=== PATIENT | female | born 1960 | race Caucasian/White ===

== ENCOUNTER 2018-07-29 13:56 | Outpatient (CLI) | payer OTHER | END 2018-07-29 13:57 | disposition home or self-care (01) | LOC: BICMAMMO 13:56 | PROVIDERS: ATTEND Obstetrics & Gynecology | DX: Z12.31 Encounter for screening mammogram for malignant neoplasm of breast (principal); Z80.3 Family history of malignant neoplasm of breast | CPT/HCPCS: 77063; 77067 ==

== ENCOUNTER 2019-08-01 14:31 | Outpatient (CLI) | payer OTHER ==
--- NOTE | 2019-08-01 15:57 | MMO ---
Bilateral MAMMO Bilat Screen [facility]. CLINICAL HISTORY: Patient is 59 years old and is seen for screening. The patient has no family history of breast cancer. The patient has no personal history of cancer. VIEWS: The views performed were: bilateral craniocaudal with tomosynthesis and bilateral mediolateral oblique with tomosynthesis. FILMS COMPARED: The present examination has been compared to prior imaging studies performed at 07/29/2018, and at [facility] on 07/29/2017. This study has been interpreted with the assistance of computer-aided detection. MAMMOGRAM FINDINGS: There are scattered fibroglandular densities. There are no suspicious masses, suspicious calcifications, or new areas of architectural distortion. IMPRESSION: THERE IS NO MAMMOGRAPHIC EVIDENCE OF MALIGNANCY. A ROUTINE FOLLOW-UP MAMMOGRAM IN 1 YEAR IS RECOMMENDED. THE RESULTS OF THIS EXAM WERE SENT TO THE PATIENT. ACR BI-RADS Category 1 - Negative MAMMOGRAPHY NOTE: 1. A negative mammogram report should not delay a biopsy if a dominant of clinically suspicious mass is present. 2. Approximately 10% to 15% of breast cancers are not detected by mammography. 3. Adenosis and dense breasts may obscure an underlying neoplasm. Reported by: ALF WALLACE MD Electonically Signed: [id number]
== END 2019-08-01 14:32 | disposition home or self-care (01) ==
LOC: BICMAMMO 14:31
PROVIDERS: ATTEND Family Medicine
DX: Z12.31 Encounter for screening mammogram for malignant neoplasm of breast (principal)
CPT/HCPCS: 77063; 77067

== ENCOUNTER 2020-09-05 10:00 | Outpatient (CLI) | payer BC ==
--- NOTE | 2020-09-05 11:11 | MMO ---
Bilateral MAMMO Bilat Screen [facility]. CLINICAL HISTORY: Patient is 60 years old and is seen for screening. The patient has no family history of breast cancer. The patient has no personal history of cancer. VIEWS: The views performed were: bilateral craniocaudal with tomosynthesis and bilateral mediolateral oblique with tomosynthesis. FILMS COMPARED: The present examination has been compared to prior imaging studies performed at 07/29/2018 and 08/01/2019, and at [facility] on 07/29/2017. This study has been interpreted with the assistance of computer-aided detection. MAMMOGRAM FINDINGS: There are scattered fibroglandular densities. There are no suspicious masses, suspicious calcifications, or new areas of architectural distortion. IMPRESSION: THERE IS NO MAMMOGRAPHIC EVIDENCE OF MALIGNANCY. A ROUTINE FOLLOW-UP MAMMOGRAM IN 1 YEAR IS RECOMMENDED. THE RESULTS OF THIS EXAM WERE SENT TO THE PATIENT. ACR BI-RADS Category 1 - Negative MAMMOGRAPHY NOTE: 1. A negative mammogram report should not delay a biopsy if a dominant of clinically suspicious mass is present. 2. Approximately 10% to 15% of breast cancers are not detected by mammography. 3. Adenosis and dense breasts may obscure an underlying neoplasm. Reported by: MANOLO NOLAN MD Electonically Signed: [id number]
== END 2020-09-05 10:01 | disposition home or self-care (01) ==
LOC: BICMAMMO 10:00
PROVIDERS: ATTEND Family Medicine
DX: Z12.31 Encounter for screening mammogram for malignant neoplasm of breast (principal)
CPT/HCPCS: 77063; 77067

== ENCOUNTER 2023-03-09 08:01 | Inpatient (IN) | payer MEDICARE ==
[2023-03-09] MEDS ORDERED: Iopamidol-370 76% 500 ML MDV (1 ML CHARGE) ONE (08:36)
[2023-03-09 08:47] LABS: #Monocytes 0.1 thou/uL (0.11-0.59); #Neutrophils 8.8 thou/uL (1.40-6.50); %Basophils 0.1 % (0.0-1.0); %Eosinophils 0.2 % (0.0-10.0); %Monocytes 1.3 % (0.0-10.0); %Neutrophils 79.9 % (42.0-75.0); Hematocrit 31.4 % (36.0-47.0); Hemoglobin 9.5 g/dL (12.0-16.0); Mean Corpuscular HGB CONC 30.3 g/dL (32.0-36.0); Mean Corpuscular Hemoglobin 22.1 pg (27.0-31.0); Mean Corpuscular Volume 73.2 fl (78.0-98.0); Mean Platelet Volume 9.3 fL (7.4-10.4); Platelet Count 757 10x3/uL (130-400); RBC Distribution Width 22.3 % (11.5-14.5); Red Blood Cell (RBC) Count 4.29 mill/uL (4.20-5.40)
[2023-03-09 09:05] LABS: INR-International Normal Ratio 1.1; PTT 27.3 sec (22.9-36.1); Prothrombin Time 14.7 sec (12.0-14.7)
[2023-03-09 09:11] LABS: ALT (SGPT) 50 U/L (8-55); AST (SGOT) 88 U/L (5-34); Albumin 3.3 g/dL (3.4-4.8); Alkaline Phosphatase 220 U/L (40-110); Anion Gap 14 mmol/L (10-20); BUN (Urea Nitrogen) 13 mg/dL (9.8-20.1); Bilirubin, Total 0.7 mg/dL (0.2-1.2); Calc. Creatinine Clearance 0 mL/min (70-130); Calcium 9.5 mg/dL (7.8-10.44); Carbon Dioxide 24 mmol/L (23-31); Chloride 101 mmol/L (98-107); Estimated GFR 96; Globulin 3.9 g/dL (2.4-3.5); Glucose 91 mg/dL (80-115); Lipase 25 U/L (8-78); Protein, Total 7.2 g/dL (5.8-8.1); Sodium 135 mmol/L (136-145)
[2023-03-09 09:38] LABS: CellaVision Operator ID LAB.GE; Hypochromia SLIGHT = 6-15 cells HPF (0-5); Large Platelets 1.7 % (0-5); Microcytosis SLIGHT = 6-15 cells HPF (0-5); Platelet Adequacy Comment Platelets Normal; Smudge Cells 6.1 %
[2023-03-09] MEDS ORDERED: Bisacodyl 5 MG TAB PO PRN (10:14)
[2023-03-09] MEDS ORDERED: Bisacodyl 10 MG SUPP PR PRN (10:14)
[2023-03-09] MEDS ORDERED: Senokot S 8.6-50 MG TAB PO PRN (10:14)
[2023-03-09 10:20] LABS: Bacteria/HPF None Seen HPF (None Seen); Bilirubin Negative (Negative); Blood, Urine Negative (Negative); CAUTI Indications for Culture Immunosuppressed; Clarity Clear (Clear); Glucose, Urine (Dipstick) Normal (Negative); Ketone, Urine Negative (Negative); Leukocyte Negative Leu/uL (Negative); Nitrite Negative (Negative); Protein, Urine (Dipstick) Negative (Neg-Trace); RBC/HPF 0-3 HPF (0-3); Specific Gravity, Urine 1.025 (1.002-1.036); Squamous Epithelial 0-3 HPF (0-3); Urobilinogen Normal mg/dL (Less than 2); WBC/HPF 0-3 HPF (0-3)
[2023-03-09 10:22] LABS: Urine Culture Reflex Yes Yes
[2023-03-09] MEDS ORDERED: Piperacillin/Tazobactam 4.5 GM VIAL ONE (10:24)
[2023-03-09] MEDS ORDERED: Piperacillin/Tazobactam 3.375 GM in Sodium Chloride 0.9% 100 ML IVPB SCH (12:00)
[2023-03-09 12:27] LABS: Hematocrit 27.1 % (36.0-47.0); Hemoglobin 8.2 g/dL (12.0-16.0); Mean Corpuscular HGB CONC 30.3 g/dL (32.0-36.0); Mean Corpuscular Hemoglobin 22.2 pg (27.0-31.0); Mean Corpuscular Volume 73.4 fl (78.0-98.0); Mean Platelet Volume 9.5 fL (7.4-10.4); RBC Distribution Width 22.1 % (11.5-14.5); Red Blood Cell (RBC) Count 3.69 mill/uL (4.20-5.40)
[2023-03-09 12:34] LABS: Platelet Count 631 10x3/uL (130-400)
[2023-03-09 15:09] VITALS: BMI 29.8
[2023-03-09] MEDS ORDERED: Iron, Sodium Ferric Gluconate 125 MG in Sodium Chloride 0.9% 100 ML IVPB SCH (17:00)
[2023-03-09] MEDS: Sodium Chloride 0.9% 1,000 ML IV SCH ×2 (17:08→23:48)
[2023-03-09] MEDS: Piperacillin/Tazobactam 3.375 GM in Sodium Chloride 0.9% 100 ML IVPB SCH ×2 (17:16→23:27)
[2023-03-09] MEDS: Acetaminophen 325 MG TAB PO PRN (17:17)
[2023-03-09] MEDS ORDERED: Lorazepam 0.5 MG TAB PO SCH (21:00)
[2023-03-10 07:42] LABS: Hemoglobin A1c 5.6 % (4.0-6.0)
[2023-03-10 07:44] LABS: #Eosinphils 0.1 thou/uL (0.0-0.7); #Monocytes 0.1 thou/uL (0.11-0.59); %Basophils 0.3 % (0.0-1.0); %Eosinophils 1.1 % (0.0-10.0); %Lymphocytes 15.5 % (21.0-51.0); %Monocytes 0.9 % (0.0-10.0); %Neutrophils 81.5 % (42.0-75.0); Hematocrit 26.1 % (36.0-47.0); Hemoglobin 7.9 g/dL (12.0-16.0); Mean Corpuscular HGB CONC 30.3 g/dL (32.0-36.0); Mean Corpuscular Hemoglobin 21.9 pg (27.0-31.0); Mean Corpuscular Volume 72.5 fl (78.0-98.0); Mean Platelet Volume 9.5 fL (7.4-10.4); Platelet Count 624 10x3/uL (130-400); White Blood Cell (WBC) Count 9.9 10x3/uL (4.8-10.8)
[2023-03-10 07:56] LABS: ALT (SGPT) 38 U/L (8-55); AST (SGOT) 57 U/L (5-34); Albumin 2.9 g/dL (3.4-4.8); Alkaline Phosphatase 229 U/L (40-110); Anion Gap 12 mmol/L (10-20); BUN (Urea Nitrogen) 9 mg/dL (9.8-20.1); Bilirubin, Total 0.5 mg/dL (0.2-1.2); Calc. Creatinine Clearance 99 mL/min (70-130); Calcium 8.7 mg/dL (7.8-10.44); Carbon Dioxide 23 mmol/L (23-31); Chloride 105 mmol/L (98-107); Estimated GFR 98; Globulin 3.4 g/dL (2.4-3.5); Glucose 102 mg/dL (80-115); Iron 122 ug/dL (50-170); Iron Binding Capacity, Total 154 mcg/dL (265-497); Potassium 3.9 mmol/L (3.5-5.1); Protein, Total 6.3 g/dL (5.8-8.1); Sodium 136 mmol/L (136-145)
[2023-03-10] MEDS ORDERED: ALPRAZolam 0.5 MG TAB PO PRN (08:24)
[2023-03-10] MEDS: Estradiol 1 MG TAB PO SCH (10:11)
[2023-03-10] MEDS: Piperacillin/Tazobactam 3.375 GM in Sodium Chloride 0.9% 100 ML IVPB SCH ×2 (10:12→17:00)
[2023-03-10] MEDS: Floranex 1 GM Packet PO SCH (10:12)
[2023-03-10 12:23] LABS: #Basophils 0.1 thou/uL (0.0-0.2); #Eosinphils 0.3 thou/uL (0.0-0.7); #Monocytes 0.2 thou/uL (0.11-0.59); #Neutrophils 7.2 thou/uL (1.40-6.50); %Basophils 0.5 % (0.0-1.0); %Lymphocytes 23.8 % (21.0-51.0); %Monocytes 1.5 % (0.0-10.0); %Neutrophils 70.8 % (42.0-75.0); Hematocrit 27.9 % (36.0-47.0); Hemoglobin 8.2 g/dL (12.0-16.0); Mean Corpuscular HGB CONC 29.4 g/dL (32.0-36.0); Mean Corpuscular Hemoglobin 22.2 pg (27.0-31.0); Mean Platelet Volume 9.2 fL (7.4-10.4); Platelet Count 589 10x3/uL (130-400); RBC Distribution Width 22.3 % (11.5-14.5); Red Blood Cell (RBC) Count 3.69 mill/uL (4.20-5.40); White Blood Cell (WBC) Count 10.2 10x3/uL (4.8-10.8)
[2023-03-10 12:26] LABS: Mean Corpuscular Volume 75.6 fl (78.0-98.0)
[2023-03-10 14:49] LABS: Campy jejuni + coli by PCR Negative (Negative); STEC Shiga Toxin 1+2 Negative (Negative); Salmonella spp. by PCR Negative (Negative); Shigella spp + EIEC by PCR Negative (Negative)
[2023-03-10] MEDS: Acetaminophen 325 MG TAB PO PRN (20:15)
[2023-03-11] MEDS: Piperacillin/Tazobactam 3.375 GM in Sodium Chloride 0.9% 100 ML IVPB SCH ×2 (00:55→08:30)
[2023-03-11] MEDS: Acetaminophen 325 MG TAB PO PRN ×2 (06:30→14:52)
[2023-03-11 07:04] LABS: #Eosinphils 0.2 thou/uL (0.0-0.7); #Monocytes 0.1 thou/uL (0.11-0.59); #Neutrophils 5.7 thou/uL (1.40-6.50); %Basophils 0.5 % (0.0-1.0); %Eosinophils 2.6 % (0.0-10.0); %Lymphocytes 20.1 % (21.0-51.0); %Monocytes 1.8 % (0.0-10.0); %Neutrophils 74.3 % (42.0-75.0); Hematocrit 26.3 % (36.0-47.0); Hemoglobin 7.8 g/dL (12.0-16.0); Mean Corpuscular HGB CONC 29.7 g/dL (32.0-36.0); Mean Corpuscular Hemoglobin 21.9 pg (27.0-31.0); Mean Corpuscular Volume 73.9 fl (78.0-98.0); Mean Platelet Volume 9.1 fL (7.4-10.4); Platelet Count 527 10x3/uL (130-400); Red Blood Cell (RBC) Count 3.56 mill/uL (4.20-5.40); White Blood Cell (WBC) Count 7.6 10x3/uL (4.8-10.8)
[2023-03-11 07:29] LABS: ALT (SGPT) 31 U/L (8-55); AST (SGOT) 38 U/L (5-34); Albumin 2.9 g/dL (3.4-4.8); Alkaline Phosphatase 224 U/L (40-110); Anion Gap 12 mmol/L (10-20); BUN (Urea Nitrogen) 8 mg/dL (9.8-20.1); Bilirubin, Total 0.6 mg/dL (0.2-1.2); Calc. Creatinine Clearance 96 mL/min (70-130); Calcium 8.7 mg/dL (7.8-10.44); Carbon Dioxide 21 mmol/L (23-31); Chloride 105 mmol/L (98-107); Estimated GFR 97; Globulin 3.5 g/dL (2.4-3.5); Glucose 132 mg/dL (80-115); Magnesium 1.8 mg/dL (1.6-2.6); Potassium 3.8 mmol/L (3.5-5.1); Protein, Total 6.4 g/dL (5.8-8.1); Sodium 134 mmol/L (136-145)
[2023-03-11] MEDS: Estradiol 1 MG TAB PO SCH (08:30)
[2023-03-11] MEDS: Floranex 1 GM Packet PO SCH (08:31)
[2023-03-11 14:55] VITALS: BP 126/74; TEMP 100.1
== END 2023-03-11 15:29 | disposition home or self-care (01) | DRG 374 ==
LOC: ERS 08:01 → SUATTDRO 08:01 → T4-A 10:14
PROVIDERS: ADMIT Family Medicine; ATTEND Emergency Medicine
DX: C18.9 Malignant neoplasm of colon, unspecified (principal); U07.1 COVID-19; C78.7 Secondary malignant neoplasm of liver and intrahepatic bile duct; E87.1 Hypo-osmolality and hyponatremia; K92.1 Melena; K21.9 Gastro-esophageal reflux disease without esophagitis; F32.A Depression, unspecified; D64.9 Anemia, unspecified; Z90.49 Acquired absence of other specified parts of digestive tract; Z90.710 Acquired absence of both cervix and uterus
CPT/HCPCS: 36415; 71045; 74177; 80053; 81001; 82728; 83036; 83540; 83550; 83605; 83630; 83690; 83735; 84443; 84484; 85025; 85046; 85610; 85730; 86850; 86900; 86901; 87040; 87086; 87505; 87635; 96361; 96365; J2543; J2916; J3490; J7050; Q9967